=== PATIENT | male | born 1955 | race Caucasian/White ===

== ENCOUNTER 2017-10-14 08:27 | Inpatient (IN) | payer BC ==
--- NOTE | 2017-10-07 19:20 | HP ---
HISTORY AND PHYSICAL: DATE OF ADMISSION: 10/14/17 PROVIDER: Dr. Mary Grewal.* (DICTATED BY GRACIE HARPER) HISTORY OF PRESENT ILLNESS: Ms. Hill is a 61-year-old gentleman with right hip pain that has lasted over six months. The patient reports that the pain in the hip started without trauma. He developed 6/10 groin pain, which has radiated out to his thigh and lateral hip. He states it increases with prolonged ambulation. He states that it is constant and now worsening. He has failed conservative therapy with NSAIDs and physical therapy. He would like to proceed with a right total hip arthroplasty with Dr. Grewal. PAST MEDICAL HISTORY: Depression and anxiety. PAST SURGICAL HISTORY: Right inguinal hernia 15 years ago, ventral hernia repair 2016. MEDICATIONS: 1. Tylenol 3, 300-30. 2. Vitamin B12, 250 mcg. 3. Fluticasone 50 mcg. 4. Remeron 15 mg. 5. Pristiq 50 mg. 6. Wellbutrin 150 mg. 7. Vitamin D. ALLERGIES: 1. No known drug allergies. 2. Cat dander. FAMILY HISTORY: Maternal, breast cancer. Paternal, heart disease, hypertension and stroke. 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 He is semiretired, lives alone. No tobacco. Five alcoholic beverages per week, four to eight ounces each. No recreational drug use. Normally an independent ambulator. REVIEW OF SYSTEMS: The patient denies fevers, chills, or night sweats. No known anesthesia problems. HEENT: The patient denies headaches, lightheadedness, or syncopal episodes. Cardiothoracic: The patient denies any chest pain, heart palpitations, or edema. Pulmonary: The patient denies any shortness of breath with exertion, chronic cough, COPD. GI: The patient denies nausea, vomiting, diarrhea, or constipation. : The patient denies any nocturia, urinary frequency or urgency. MSK: The patient admits to right hip pain. Denies any chronic or intermittent back pain or fractures. Neuro: The patient denies any paresthesias, numbness, seizure, stroke. Integument: The patient denies any abrasions, lesions, rashes, lumps, or open sores. PHYSICAL EXAMINATION GENERAL: The patient is alert and oriented x3 with appropriate mood and affect , appropriate dress and hygiene. HEENT: Normocephalic, atraumatic. Hearing and vision grossly intact. PULMONARY: Lungs are clear to auscultation bilaterally with no wheezes, rales, or rhonchi. CARDIO: Regular rate and rhythm. Normal S1 and S2. No appreciable S3 or S4. No murmurs, rubs, or gallops. MSK: Right lower extremity, right hip; inspection of the right hip reveals no erythema, no ecchymosis. Skin is warm, dry and intact. The patient has positive log roll pain developing in the groin. He has range of motion of 80 degrees of flexion, 10 degrees of internal rotation, and 10 degrees of external rotation with pain that is in the groin and stops him from moving it further. He is neurovascularly intact distally with 2+ dorsalis pedis pulse. IMPRESSION: Right hip osteoarthritis. PLAN: The patient will go the OR on 10/14/17 for a right total hip arthroplasty. The patient will then return to the clinic in 10 to 14 days postop for suture removal. Prescription for Percocet has been sent to the pharmacy for record to be used postoperatively along with warfarin. GRACIE HARPER [id number]/[facility] #: [id number] [place]
[~2017-10-14 08:27] MED LIST: Acetaminophen IV 1GM/100ML * 1,000 MG/100 ML VIAL IVPB ONE; Buffered Lidocaine 0.9% SYRIN* 5 ML/SYR SYRINGE INTRADERM ONE; Dexamethasone IV* 4 MG/ML 1 ML (4 MG) IV SLOW PU ONE; Famotidine TAB* 20 MG PO ONE; Gabapentin CAP(*) 300 MG PO ONE
[2017-10-14] MEDS ORDERED: Dexamethasone IV* 4 MG/ML 1 ML (4 MG) ONE (08:44)
[2017-10-14] MEDS ORDERED: Gabapentin CAP(*) 300 MG ONE (08:44)
[2017-10-14] MEDS ORDERED: Buffered Lidocaine 0.9% SYRIN* 5 ML/SYR SYRINGE ONE (08:45)
[2017-10-14] MEDS ORDERED: ceFAZolin 2 GM in 100 MLS NS (*) BAG IVPB ONE (08:45)
[2017-10-14] MEDS ORDERED: fentaNYL* 50 MCG/ML 2 ML VIAL (100 MCG VIAL) ONE ×3 (10:35→16:04)
[2017-10-14] MEDS ORDERED: Midazolam* 1 MG/ML 10 ML VIAL (10 MG) ONE (10:35)
[2017-10-14] MEDS ORDERED: Ropivacaine (OR use only) 2 MG/ML 1 ML ONE ×2 (10:36→10:38)
[2017-10-14] MEDS ORDERED: ROPIVACAINE 5 MG/ML 30 ML BTL (0.5%) ONE (10:36)
[2017-10-14] MEDS ORDERED: Acetaminophen IV 1GM/100ML * 100 ML ONE (11:31)
[2017-10-14] MEDS ORDERED: Ketorolac INJ* 30 MG/ML 1 ML VIAL ONE (11:47)
[2017-10-14] MEDS ORDERED: DiMENhydriNATE IV* 50 MG/ML VIAL IV PUSH PRN (11:55)
[2017-10-14] MEDS ORDERED: HYDROmorphone INJ* 1 MG/ML CARPUJECT SYRINGE IV PRN (11:55)
[2017-10-14] MEDS ORDERED: Naloxone* 0.4 MG/ML 1 ML VIAL IV PRN (11:55)
[2017-10-14] MEDS ORDERED: oxyCODONE TAB* 5 MG TAB PO PRN (11:55)
[2017-10-14] MEDS ORDERED: Ondansetron INJ* 2 MG/ML VIAL IV PRN ×2 (11:55→12:31)
[2017-10-14] MEDS ORDERED: fentaNYL* 50 MCG/ML 2 ML VIAL (100 MCG VIAL) IV PRN (11:55)
[2017-10-14] MEDS ORDERED: Propofol* 10 MG/ML 20 ML BTL IV PUSH ONE ×2 (12:02→13:26)
[2017-10-14] MEDS ORDERED: Bisacodyl SUPP* 10 MG SUPP PR PRN (12:31)
[2017-10-14] MEDS ORDERED: Magnesium Hydroxide LIQ* 30 ML UDC PO PRN (12:31)
[2017-10-14] MEDS ORDERED: Acetaminophen TAB* 325 MG PO PRN (12:31)
[2017-10-14] MEDS ORDERED: oxyCODONE/Acetamin 5/325 MG* TAB PO PRN (12:31)
[2017-10-14] MEDS ORDERED: Ondansetron TAB* 4 MG PO PRN (12:31)
[2017-10-14] MEDS ORDERED: diPHENhydraMINE IV* 50 MG/ML 1 ml VIAL (BENADRYL) IV PRN (12:31)
[2017-10-14] MEDS ORDERED: Cyclobenzaprine TAB* 10 MG PO PRN (12:31)
[2017-10-14] MEDS ORDERED: Morphine INJ* 2 MG/ML 1 ML CARPUJECT IV PRN (12:31)
[2017-10-14] MEDS ORDERED: Polyethylene Glycol 3350* 17 GM PACKET PO PRN (12:31)
[2017-10-14] MEDS ORDERED: Lidocaine 2% PF * 5 ML VIAL ONE (13:43)
--- NOTE | 2017-10-14 14:28 | RAD ---
INDICATION: Right total hip replacement COMPARISON: None TECHNIQUE: A single portable crosstable lateral view of the pelvis is submitted. FINDINGS: There is placement of the acetabular cup. There is placement of the femoral stem for sizing. IMPRESSION: Operative control films are submitted
--- NOTE | 2017-10-14 15:09 | RAD ---
INDICATION: Status post right total hip arthroplasty COMPARISON: Preoperative radiograph dated September 02, 2017 TECHNIQUE: 3 views of the right hip were obtained. FINDINGS: The right hip prosthesis is anatomically aligned in the AP and lateral projections. The visualized bones are intact and appropriately aligned. IMPRESSION: Anatomic alignment of right hip prosthesis.
[2017-10-14] MEDS ORDERED: oxyCODONE TAB* 5 MG TAB ONE (16:04)
[2017-10-14] MEDS ORDERED: Warfarin TAB(*) 6 MG PO ONE (17:00)
[2017-10-14] MEDS: Docusate CAP* 100 MG PO SCH (20:13)
[2017-10-14] MEDS: ceFAZolin 1 GM in Dextrose (*) 1 GM/50 ML BAG IVPB SCH (20:14)
[2017-10-14] MEDS: Magnesium Hydroxide LIQ* 30 ML UDC PO SCH (20:19)
[2017-10-14] MEDS ORDERED: CMCS:Desvenlafaxine (NF) 50 MG TAB PO SCH (21:00)
[2017-10-14] MEDS ORDERED: Mirtazapine TAB* 15 MG PO SCH (21:00)
[2017-10-14] MEDS: oxyCODONE TAB* 5 MG TAB PO PRN (22:14)
[2017-10-15] MEDS: oxyCODONE/Acetamin 5/325 MG* TAB PO PRN ×3 (00:12→12:07)
[2017-10-15] MEDS: ceFAZolin 1 GM in Dextrose (*) 1 GM/50 ML BAG IVPB SCH ×2 (03:07→10:59)
[2017-10-15 05:38] LABS: Hematocrit 34 % (42-52); Hemoglobin 11.7 g/dl (14.0-18.0); Mean Platelet Volume 8 um3 (7.4-10.4); Platelet Count 205 10^3/ul (150-450)
[2017-10-15 05:44] LABS: INR 0.95 (0.77-1.02)
[2017-10-15 05:52] LABS: EGFR Non-African American 107.9 (>60)
[2017-10-15] MEDS: oxyCODONE TAB* 5 MG TAB PO PRN ×2 (05:58→15:42)
[2017-10-15] MEDS: Docusate CAP* 100 MG PO SCH (07:52)
[2017-10-15] MEDS: Magnesium Hydroxide LIQ* 30 ML UDC PO SCH (07:53)
[2017-10-15] MEDS ORDERED: buPROPion SR TAB.SR* 150 MG PO SCH (09:00)
--- NOTE | 2017-10-15 10:57 | PN ---
Progress Note - Progress Note Date of Service: 10/15/17 SOAP: Subjective: 62 y/o male s/p R MELE by Dr. Grewal. Patient doing well, no complaints, no questions re: surgery. pain controlled, working with PT well. VSS, afebrile overnight. Objective: General- Well appearing, NAD, AO SItting in chair comfortably, walking halls with PT without difficulty MSK- R LE- DF/PF = b/l, PT 2+, negative homans sign, SITLT b/l, surgical dressing intact, no drainage noted, no induration, erythema, non-tender. Vital Signs Temp 98.1 F 10/15/17 07:45 Pulse 71 10/15/17 07:45 Resp 16 10/15/17 10:03 BP 132/67 10/15/17 07:45 Pulse Ox 99 10/15/17 07:45 Intake & Output 10/14/17 10/15/17 10/15/17 18:59 06:59 18:59 Intake Total 1800 3240 585 Output Total 870 2900 Balance 930 340 585 Weight 97.795 kg Intake: IV Fluids 1800 940 ABX - CEFAZOLIN 50 LR 890 rl 1800 Oral 2300 585 Output: Urine 900 Duke 750 2000 Residual 20 Duke 16 Fr 20 Estimated Blood Loss 100 Assessment: Stable 62 y/o male s/p R MELE by Dr. Grewal POD#1 Plan: - DVT prophylaxis- lovenox, ASA 325mg BID for home DVT prophylaxis - Continue PT/ OT - doing well, given home exercises - Follow up with Dr. Grewal within 10-14 days - H&H Stable - Post-op IV ABX - Running. - D/C to home today Active Medications Generic Name Dose Route Start Last Admin Trade Name Freq PRN Reason Stop Dose Admin Acetaminophen 650 mg 10/14/17 12:31 Tylenol Tab* PO Q4H PRN PAIN OR TEMPERATURE Bisacodyl 10 mg 10/14/17 12:31 Dulcolax Supp* TX DAILY PRN constipation Bupropion HCl 150 mg 10/15/17 09:00 10/15/17 07:52 Wellbutrin Sr Tab* PO 150 mg QAM JOSE Administration Cyclobenzaprine HCl 10 mg 10/14/17 12:31 Flexeril Tab* PO TID PRN SPASMS Desvenlafaxine Succinate 50 mg 10/14/17 21:00 10/14/17 20:14 Pristiq (Nf) PO 50 mg BEDTIME JOSE Administration Diphenhydramine HCl 12.5 mg 10/14/17 12:31 Benadryl Iv* IV Q6H PRN PRURITIS Docusate Sodium 100 mg 10/14/17 21:00 10/15/17 07:52 Colace Cap* PO 100 mg BID JOSE Administration Enoxaparin Sodium 30 mg 10/15/17 12:00 Lovenox(*) SUBCUT Q24H JOSE Cefazolin Sodium/Dextrose 1 gm in 50 mls @ 200 mls/hr 10/14/17 19:00 03:07 Kefzol 1 Gm In Dextrose Duplex (*) IVPB 10/15/17 11:14 200 mls/hr Q8H JOES Administration Lactated Ringer's 1,000 mls @ 100 mls/hr 10/14/17 13:00 10/15/17 03:14 Lactated Ringers 1000 Ml Bag* IV 100 mls/hr PER RATE JOSE Administration Lactulose 30 ml 10/14/17 12:31 Lactulose* PO Q6H PRN constipation Magnesium Hydroxide 30 ml 10/14/17 21:00 10/15/17 07:53 Milk Of Magnesia Liq* PO 30 ml BID JOSE Administration Magnesium Hydroxide 30 ml 10/14/17 12:31 Milk Of Magnesia Liq* PO Q6H PRN constipation Mirtazapine 7.5 mg 10/14/17 21:00 10/14/17 20:12 Remeron Tab* PO 7.5 mg BEDTIME JOSE Administration Morphine Sulfate 2 mg 10/14/17 12:31 Morphine Inj (Syringe)* IV Q2H PRN PAIN Naloxone HCl 0.08 mg 10/14/17 11:55 Narcan* IV 10/15/17 11:54 Q2M PRN severe induced resp depression Ondansetron HCl 4 mg 10/14/17 12:31 Zofran Inj* IV Q6H PRN nausea Ondansetron HCl 4 mg 10/14/17 12:31 Zofran Tab* PO Q6H PRN NAUSEA Oxycodone HCl 10 mg 10/14/17 12:31 10/15/17 05:58 Roxycodone Tab* PO 10 mg Q4H PRN Administration SEVERE PAIN Oxycodone/Acetaminophen 2 tab 10/14/17 12:31 10/15/17 07:52 Percocet 5/325 Tab* PO 2 tab Q4H PRN Administration PAIN Oxycodone/Acetaminophen 1 tab 10/14/17 12:31 Percocet 5/325 Tab* PO Q4H PRN PAIN Polyethylene Glycol/Electrolytes 17 gm 10/14/17 12:31 Miralax* PO DAILY PRN Constipation
[2017-10-15] MEDS ORDERED: Enoxaparin(*) 30 MG/0.3 ML SYR SUBCUT SCH (12:00)
[2017-10-15 15:45] VITALS: BP 134/57
--- NOTE | 2017-10-15 22:13 | OP ---
OPERATIVE NOTE: DATE OF OPERATION: 10/14/17 DATE OF : 59 ATTENDING SURGEON: Mary Grewal MD BEADER TENDER: GRACIE Dickerson Mr. Cerna did help throughout the procedure with preparation of the leg, wound retraction, manipulat ion of the hip, and wound closure. ANESTHESIOLOGIST: Dr. Penn. ANESTHESIA: Spinal with iliaca block. PRE-OP DIAGNOSIS: Severe end-stage degenerative osteoarthritis of the right hip. POST-OP DIAGNOSIS: Severe end-stage degenerative osteoarthritis of the right hip. OPERATIVE PROCEDURE: Right total hip arthroplasty. COMPLICATIONS: None. ESTIMATED BLOOD LOSS: 300 cc. SPECIMEN: Femoral head and acetabular reaming sent to pathology. HARDWARE USED: This is uncemented [place] total hip hardware. For the cup, a Tritanium cluster hole shell 56E. A single 20-mm cancellous bone screw. For the liner, an MDM cementless liner 42E. For the stem, Accolade TMZF size 4.5 with a 132-degree neck. For the head, a 28 +0 Biolox delta ceramic V40 femoral head with a Protestant ADM/MDM X3 28/48/42E liner. BRIEF HISTORY/INDICATION: Mr. Hill is a 62-year-old gentleman with years of increasingly severe r ight hip pain. He failed conservative treatment with anti- inflammatories, pain medication, home exe rcise program. His radiographs showed [id number] arthritis. Due to continued pain and decreased q uality of life, he elected to undergo right total hip arthroplasty. Informed consent was obtained fr om the patient. He understood the risks of surgery included, but were not limited to bleeding, infec tion, damage to nearby structures, continued pain, need for further surgery, intraoperative fracture, nerve palsy, hardware failure or loosening, dislocation, leg length discrepancies, stroke, heart att ack, blood clot, and . He wished to proceed. INTRAOPERATIVE FINDINGS: Intraoperatively, the patient was noted to have severe end-stage arthritis with complete loss of cartilage in the femoral head and acetabulum. DESCRIPTION OF PROCEDURE: Mr. Hill was identified in the preanesthesia unit. His right lower extr emity was marked as the correct operative side. Informed consent was signed and placed in the chart. The patient was taken to the operating room and placed under iliaca block with spinal anesthesia. A Duke catheter was placed. The patient was placed in the left lateral decubitus position on the pe g board. All bony prominences were well padded. Right lower extremity was prepped and draped in the usual sterile fashion. Preop time-out was made to correctly identify the patient, side, and site. Appropriate perioperative antibiotics were given within 1 hour of incision. A 12-cm posterior hip incision was made with a 10-blade and carried down to the lateral fascial layer . Lateral fascial layer was incised in line with the skin incision. Charnley retractor was placed. The piriformis and conjoint tendons were identified and elevated off the posterolateral femur using electrocautery. These were tagged with Ethibond suture. Next, electrocautery was used to make a sta ndard posterolateral capsular flap and this was also tagged with Ethibond suture. The hip was carefu lly dislocated. Lesser troch to center of the femoral head measured 62 mm. Femoral neck cut was mad e with an oscillating saw and the femoral head was removed. The femur was carefully retracted anteri geetha. After appropriate placement of retractors, the acetabulum was well visualized. Long-handled k nife was used to sharply remove any remaining labrum from the acetabular rim. The acetabulum was seq uentially reamed up to a size 55. Subchondral bleeding bone bed was obtained. A 55 trial had excell ent fit. Final implant chosen was a Tritanium cluster hole shell 56E. This was impacted into the ac etabulum without difficulty. There was excellent stability and a single screw was placed in the super oposterior quadrant. Anteversion and abduction angles were deemed to be appropriate. MDM cementless liner 42E was chosen and impacted into the acetabulum without difficulty. Stability of the liner wa s checked and rechecked and noted to be stable. Next, attention was turned to preparation of the femur. Box cut osteotome and canal finder were used to enter the proximal femur. The femur was sequentially broached up to a size 4.5. 4.5 broach had excellent fit and appropriate anteversion. A 132 neck trial was placed as well as a 28 +0 head trial with appropriate MDM liner trial. Lesser troch to center of femoral head measured 63 mm. The hip w as reduced and taken through a range of motion. The hip was stable in all positions. Leg length and soft tissue were deemed to be appropriate. The hip was carefully reduced. All trials were removed. Final implant chosen was Accolade TMZF size 4.5 with a 132-degree neck. Th is was impacted into the femoral canal without difficulty. The stem was stable with appropriate ante version. A 28 +0 ceramic Biolox delta V40 femoral head was chosen with a 28/48/42E MDM X3 liner. Th is was impacted onto the femoral neck without difficulty. Lesser troch to center of the femoral head measured 63 mm. The hip was reduced and taken through a r pedro of motion. The hip was stable in all positions. The hip was copiously irrigated with sterile saline. Previously tagged capsule and tendons were reap proximated to the posterolateral femur through 2 trochanteric drill holes. The lateral fascial layer was closed using interrupted #1 Vicryls. The rest of the incision was clos ed in a layered fashion using 0 and 2-0 Vicryls. Skin was closed using running 3-0 Monocryl and Derm abond. Sterile Adaptic, 4x4s, and paper tape were used to cover the incision. The patient's anesthesia was reversed without difficulty. He was taken to the PACU in stable conditi on. Intended weightbearing will be weightbearing as tolerated. Intended DVT prophylaxis will be Coum nicolas with a Lovenox bridge. [id number]/[facility] #: [id number]
--- NOTE | 2017-10-16 11:20 | DS ---
DISCHARGE SUMMARY: DATE OF ADMISSION: 10/14/17 DATE OF DISCHARGE: 10/15/17 ATTENDING PHYSICIAN: Dr. Grewal.* (DICTATED BY GRACIE DIAMOND) CHIEF COMPLAINT: 1. Right hip pain. 2. Depression. 3. Anxiety. DISCHARGE DIAGNOSES: 1. Status post right total hip arthroplasty, uncomplicated. 2. Depression. 3. Anxiety. PROCEDURE: Right total hip arthroplasty. CONSULTATIONS: 1. Physical Therapy. 2. Occupational Therapy. 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 Mary Grewal. HOSPITAL COURSE: Dr. 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 Postoperatively, he recovered in the surgical short-stay unit. His Duke was removed. On postoperative day 1, he was voiding without difficulty. He was advanced to a regular diet, which he tolerated well. Pain was controlled with p.o. Percocet. He was restarted on his home medications. His labs and vital signs remained stable. He is able to bear weight as tolerated on the right lower extremity, advance appropriately with physical therapy and occupational therapy. DVT prophylaxis was managed with Lovenox in-house. He will be managed with aspirin 325 mg p.o. b.i.d. as an outpatient. By postoperative day #1, he was orthopedically and medically stable for discharge to go home with home services. PHYSICAL EXAMINATION: General: Well appearing, in no acute distress. Alert and oriented. Resting in the chair comfortably. Vital Signs: Temperature 98.6 , pulse rate 75, respirations 16, oxygen saturation 100% on room air, and blood pressure 134/57. Examination of the lower extremities show that the surgical dressing remains intact over the surgical site with no induration or erythema surrounding the area. Positive dorsiflexion and plantar flexion equal bilaterally. Posterior tibial pulses 2+ bilaterally. Negative Homans sign bilaterally. Sensation intact to light touch bilaterally. The patient is ambulatory with mild difficulty, working well with physical therapy. LABORATORY DATA: On the date of discharge, H and H of 11.7 and 34. RADIOGRAPHS: Postoperative films of the right hip demonstrates a right total hip arthroplasty in satisfactory position. DISCHARGE MEDICATIONS: 1. Aspirin 325 mg p.o. b.i.d. 2. Wellbutrin 150 mg p.o. q.a.m. 3. Pristiq 50 mg p.o. q.h.s. 4. Colace 100 mg p.o. b.i.d. 5. Remeron 7.5 mg p.o. q.h.s. 6. Oxycodone/acetaminophen 5/325 one to two tablets every 4 to 6 hours as needed for pain. 7. Vitamin D 1000 international units p.o. q.a.m. 8. Vitamin B12 500 mcg p.o. q.a.m. 9. Flonase Allergy Relief 50 mcg by nasal daily. CONDITION ON DISCHARGE: Stable. DISCHARGE INSTRUCTIONS: Mr. Hill is a very pleasant 62-year-old gentleman postoperative day #1, status post right total hip arthroplasty which was uncomplicated. He is orthopedically and medically stable for discharge to go home with home services with labs and vital signs are stable. He will restart his home medications. He will take aspirin 325 mg p.o. b.i.d. for DVT prophylaxis. He will have visiting home nurse services as well as visiting home PT. He will be weightbearing as tolerated on the right lower extremity. He will take Percocet as needed for pain control, but may also take Tylenol or Motrin/naproxen as needed. He will take Colace to prevent constipation. He will follow up with Dr. Grewal in approximately 10 to 14 days for incision check and suture removal. He was instructed to go to the ER should he develop chest pain or shortness of breath. Should he develop fever, increasing pain, or redness, he is to call the office immediately. GRACIE DIAMOND [id number]/[facility] #: [id number] [place]
== END 2017-10-15 16:30 | disposition home health service (06) | DRG 301 ==
LOC: AA 08:27 → SSU 18:01
PROVIDERS: ADMIT Orthopaedic Surgery Adult Reconstructive Orthopaedic Surgery; ATTEND Orthopaedic Surgery Adult Reconstructive Orthopaedic Surgery
PROC: 0SR904A Replacement of Right Hip Joint with Ceramic on Polyethylene Synthetic Substitute, Uncemented, Open Approach (ICD-10-PCS; principal; 2017-10-14 11:00)
DX: M16.11 Unilateral primary osteoarthritis, right hip (principal); F32.9 Major depressive disorder, single episode, unspecified; F41.9 Anxiety disorder, unspecified; Z79.82 Long term (current) use of aspirin; Z82.49 Family history of ischemic heart disease and other diseases of the circulatory system; Z82.3 Family history of stroke; Z80.3 Family history of malignant neoplasm of breast; Z72.89 Other problems related to lifestyle
CPT/HCPCS: 36415; 72170; 80048; 85014; 85018; 85049; 85610; A9270-GY; J0690; J1100; J1650; J1885; J2250; J2704; J2795; J3010